=== PATIENT | female | born 1955 | race Caucasian/White ===

== ENCOUNTER 2019-03-12 06:59 | Emergency (ER) | payer OTHER ==
[~2019-03-12] VITALS: Ht 177.8 cm; Wt 65.8 kg
--- NOTE | 2019-03-12 07:00 | NUR ---
PT ABLE TO AMBULATE TO RESTROOM WITH STEADY GAIT. SMALL AMOUNT OF URINE COLLECTED AND SENT TO LAB.
--- NOTE | 2019-03-12 07:08 | NUR ---
NA FROM HOME. AAOX4. NO SOB. AMBULATORY. C/O RLQ ABDOMINAL PAIN X 2 HORS AGO, SHARP PAIN 07/11. REPORTS NAUSEA AND DIARRHEA. PT UNABLE TO LYING DOWN IN BED AND CANT STAY STILL BECAUSE OF PAIN. TO ER BED 10. URINE COLLECTED AND SENT OT LAB. AWAITING MD FOR EVAL AND ORDERS.
[2019-03-12] MEDS ORDERED: MORPHINE SULFATE INJ 4 MG/ML DISP.SYRIN ONE (07:14)
[2019-03-12] MEDS ORDERED: HYDROMORPHONE 1 MG/1 ML DISP.SYRIN ONE ×2 (07:22→08:21)
[2019-03-12] MEDS ORDERED: ONDANSETRON HCL/PF 4 MG/2 ML VIAL ONE (07:23)
--- NOTE | 2019-03-12 07:25 | NUR ---
IV LINE OBTAINED ON R AC 20G. BLOOD DRAWN AND GIVEN TO SUPERMARK[employer] MANAGER AT BEDSIDE.
[2019-03-12 07:30] LABS: BASOPHILS % (AUTO) 0.3 % (0.0-2.0); EOSINOPHILS % (AUTO) 0.7 % (0.0-6.0); HEMATOCRIT 44 % (33-45); HEMOGLOBIN 14.8 g/dL (11.5-14.8); LYMPHOCYTES # (AUTO) 1.8 /CMM (0.8-4.8); LYMPHOCYTES % (AUTO) 28.1 % (20.0-44.0); MEAN CORPUSCULAR HGB CONC 34 g/dl (31.0-36.0); MEAN CORPUSCULAR VOLUME 94 fL (82-100); MONOCYTES # (AUTO) 0.6 /CMM (0.1-1.30); MONOCYTES % (AUTO) 8.8 % (2.0-12.0); NEUTROPHILS % (AUTO) 62.1 % (43.0-81.0); PLATELET COUNT (AUTO) 333 /CMM (150-450); RED BLOOD CELL COUNT(AUTO) 4.64 MIL/uL (4.0-5.2); WHITE BLOOD COUNT (AUTO) 6.4 K/uL (4.3-11.0)
[2019-03-12] MEDS ORDERED: MORPHINE SULFATE INJ 2 MG/ML DISP.SYRIN IV ONE (07:30)
[2019-03-12] MEDS ORDERED: HYDROMORPHONE 1 MG/1 ML DISP.SYRIN IV ONE (07:30)
[2019-03-12] MEDS ORDERED: IV NS 0.9% 1,000 ML BAG IV ONE ×2 (07:30→08:30)
[2019-03-12] MEDS ORDERED: ONDANSETRON HCL/PF 4 MG/2 ML VIAL IVP ONE (07:30)
[2019-03-12 07:34] LABS: APPEARANCE,URINE CLEAR (CLEAR); BILIRUBIN,URINE NEGATIVE (NEGATIVE); BLOOD, URINE 1+ Ery/uL (NEGATIVE); COLOR,URINE YELLOW (YELLOW); KETONES,URINE NEGATIVE (NEGATIVE); LEUKOCYTE ESTERASE ,URINE NEGATIVE (NEGATIVE); NITRITE, URINE NEGATIVE (NEGATIVE); PH,URINE 5.5 (5.0-8.0); PROTEIN,URINE NEGATIVE (NEGATIVE); UGLUCOSE NEGATIVE (NEGATIVE); UROBILINOGEN,URINE 0.2 EU/dL (0.2)
--- NOTE | 2019-03-12 07:37 | NUR ---
REPORT GIVEN TO MARGARITA VÁZQUEZ FOR SOHAN.
--- NOTE | 2019-03-12 07:38 | NUR ---
REPORT RECEIVED FROM LEONIDAS AVILA FOR SOHAN
[2019-03-12 07:39] LABS: CREATININE 0.9 mg/dL (0.6-1.3)
--- NOTE | 2019-03-12 07:40 | NUR ---
PT BEING WHEELED TO RADIOLOGY ON [facility]
[2019-03-12 07:45] LABS: ALBUMIN 3.8 g/dL (3.4-5.0); BILIRUBIN,DIRECT 0.1 mg/dL (0.0-0.2); BILIRUBIN,TOTAL 0.4 mg/dL (0.2-1.0)
--- NOTE | 2019-03-12 07:55 | NUR ---
PT BACK FROM CT SCAN.
[2019-03-12 08:09] LABS: BACTERIA,URINE Rare /HPF (None Seen); SQUAMOUS EPITHELIAL CELL,UR Few /HPF (None Seen); WBC,URINE 0-2 /HPF (0-3)
[2019-03-12] MEDS ORDERED: HYDROMORPHONE INJ 2 MG/ML DISP.SYRIN IV ONE (08:30)
[2019-03-12] MEDS ORDERED: TAMSULOSIN 0.4 MG CAP.SR.24H ONE (08:59)
[2019-03-12] MEDS ORDERED: TAMSULOSIN 0.4 MG CAP.SR.24H PO ONE (09:00)
--- NOTE | 2019-03-12 10:02 | NUR ---
IV removed. Catheter intact and site benign. Pressure and 4x4 applied to site. No bleeding noted.Patient discharged to home in stable condition. Written and verbal after care instructions given. Patient verbalizes understanding of instruction.
[2019-03-12 10:04] VITALS: BP 128/71
== END 2019-03-12 10:05 | disposition home or self-care (01) ==
LOC: ER 06:59
DX: N13.2 Hydronephrosis with renal and ureteral calculous obstruction (principal); E86.0 Dehydration; Z87.442 Personal history of urinary calculi
CPT/HCPCS: 36415; 71045; 74176; 80048; 80076; 81001; 83690; 85025; 93005; 96361; 96374; 96375; 96376; 99284; J1170 ×2; J2405; J7030 ×2; 81000-TC; J2270